=== PATIENT | female | born 1960 | race Caucasian/White ===

== ENCOUNTER 2018-03-04 18:17 | Emergency (ER) | payer OTHER ==
[2018-03-04] MEDS ORDERED: Ibuprofen TAB* 400 MG PO ONE (18:57)
[2018-03-04 19:01] VITALS: BP 80/47
--- NOTE | 2018-03-04 19:30 | UC ---
Upper Extremity HPI - HPI Summary HPI Summary: This patient is a 58 year old F with PMHx of Parkinsons presenting to [facility] with a chief complaint of L fifth digit injury since 16:45 today. She bent her finger backwards in a fall. The patient rates the pain 10/10 in severity. - History of Current Complaint Chief Complaint: UCUpperExtremity Stated Complaint: hand injury Time Seen by Provider: 03/04/18 18:41 Hx Obtained From: Patient Hx Last Menstrual Period: post menapausal Onset/Duration: Sudden Onset, Lasting Hours Severity Initially: Severe Severity Currently: Severe Pain Intensity: 10 Pain Scale Used: 0-10 Numeric Location Of Pain: Is Discrete @ - L 5th digit - Allergies/Home Medications Allergies/Adverse Reactions: Allergies Allergy/AdvReac Type Severity Reaction Status Date / Time MS Polyethylene Glycol Allergy Hives/Diff. Verified 11/14/16 14:13 [From GoLYTELY] Breathing/I tching MS Sodium Sulfate Allergy Hives/Diff. Verified 11/14/16 14:13 [From GoLYTELY] Breathing/I tching PMH/Surg Hx/FS Hx/Imm Hx Cardiovascular History: Other - Low blood pressure Other Cardiovascular History: Low blood pressure Neurological History: Other - Parkinson's Other Neurological History: Parkinson's - Surgical History Surgical History: Yes Surgery Procedure, Year, and Place: D+C, TUBAL, DEEP BRAIN STIMULATORS - Family History Known Family History: Positive: Cardiac Disease - [place], Diabetes, Other - CVA - Social History Occupation: Disabled Lives: With Family Alcohol Use: None Substance Use Type: None Smoking Status (MU): Never Smoked Tobacco Review of Systems Constitutional: Fever - Denies fever Musculoskeletal: Other: - Pain in L 5th digit All Other Systems Reviewed And Are Negative: Yes Physical Exam - Summary Physical Exam Summary: VITAL SIGNS: Reviewed. GENERAL: Patient is a well-developed and nourished FEMALE who is lying comfortable in the stretcher. Patient is not in any acute respiratory distress. HEAD AND FACE: Normocephalic EYES: PERRLA, EOMI x 2. EARS: Hearing grossly intact. MOUTH: Oropharynx within normal limits. NECK: Supple, trachea is midline, no adenopathy, no JVD, no carotid bruit. CHEST: Symmetric, no tenderness at palpation LUNGS: Clear to auscultation bilaterally. No wheezing or crackles. CVS: Regular rate and rhythm, S1 and S2 present, no murmurs or gallops appreciated. ABDOMEN: Soft, non-tender. Bowel sounds are normal. No abdominal abnormal pulsations. EXTREMITIES: Decreased ROM and tenderness of the L fifth digit. NEURO: Alert and oriented x 3. No acute neurological deficits. Speech is normal and follows commands. SKIN: Dry and warm Triage Information Reviewed: Yes Vital Signs: Initial Vital Signs Temp 98 F 03/04/18 18:51 Pulse 87 03/04/18 18:51 Resp 15 03/04/18 18:51 BP 80/47 03/04/18 18:51 Pulse Ox 93 03/04/18 18:51 Vital Signs Reviewed: Yes Procedures - Splinting 19:30 Location: Ulnar gutter spllint on L hand Splint: ulnar - Ulnar gutter Pre-Proc Neuro Vasc Exam: normal Post-Proc Neuro Vasc Exam: normal Diagnostics - Radiology Finger X-Ray Radiology Interpretation Completed By: ED Physician - 20:30. L distal fifth metacarpal fracture. Pending official report. Upper Extremity Course/Dx - Course Course Of Treatment: Patient is a 58-year-old female who presents to the urgent care with a chief complaint of having left fifth index pain. Patient has a distal metacarpal fracture. Patient was placed in a Ulnar Gutter Splint. Patient will be discharged home with follow-up with orthopedics. Patient is to take Tylenol or ibuprofen for pain. - Differential Dx/Diagnosis Provider Diagnoses: metacarpal fracture Discharge - Sign-Out/Discharge Documenting (check all that apply): Patient Departure - D/C All imaging exams completed and their final reports reviewed: Yes - Discharge Plan Condition: Stable Disposition: HOME Patient Education Materials: Hand Fracture (ED), Suspected Fracture (ED) Referrals: Vlad Lew MD [Medical Doctor] - Flavio Olivas MD [Primary Care Provider] - Additional Instructions: Take Acetaminophen or ibuprofen for pain or fever Increase your fluid intake Return to the or go to the emergency department if symptoms worsen Follow-up with primary care physician in next 2-3 days - Billing Disposition and Condition Condition: STABLE Disposition: Home - Attestation Statements Document Initiated by Scribe: Yes Documenting Scribe: Markus Gibbs Provider For Whom Scribe is Documenting (Include Credential): Flavio Chowdhury MD Scribe Attestation: I, Markus Gibbs, scribed for Flavio Chowdhury MD on 03/04/18 at 2037. Scribe Documentation Reviewed: Yes Provider Attestation: The documentation as recorded by the scribeMarkus accurately reflects the service I personally performed and the decisions made by me, Flavio Chowdhury MD
[2018-03-04] MEDS ORDERED: Ibuprofen TAB* 400 MG ONE (19:33)
--- NOTE | 2018-03-05 07:36 | RAD ---
INDICATION: Left fifth finger trauma. TECHNIQUE: 3 views of the left fifth finger were obtained. FINDINGS: There is soft tissue swelling present. There is an oblique slightly comminuted fracture of the distal diaphysis and metaphysis of the fifth metacarpal. There is separation of the fracture fragments. Joint spaces appear maintained. IMPRESSION: OBLIQUE, COMMINUTED, DISPLACED FRACTURE OF THE DISTAL FIFTH METACARPAL. R0
== END 2018-03-04 19:55 | disposition home or self-care (01) ==
LOC: UCEAST 18:17
DX: S62.337A Displaced fracture of neck of fifth metacarpal bone, left hand, initial encounter for closed fracture (principal); W19.XXXA Unspecified fall, initial encounter; Y93.9 Activity, unspecified; Y92.9 Unspecified place or not applicable; Z88.8 Allergy status to other drugs, medicaments and biological substances; G20 Parkinson's disease
CPT/HCPCS: 25600; 73140; 99211; A9270-GY; G0463

== ENCOUNTER 2018-04-24 11:36 | Day surgery (SDC) | payer OTHER ==
--- NOTE | 2018-04-16 14:45 | HP ---
PREOPERATIVE HISTORY AND PHYSICAL: DATE OF ADMISSION/SURGERY: 04/24/18 DATE OF OFFICE VISIT/ENCOUNTER: 04/15/18 ATTENDING SURGEON: Karen Rojas MD * (DICTATED BY ILSA DUDLEY) PROCEDURE: Left small finger hardware removal, explore extensor tendon. CHIEF COMPLAINT: Prominent hardware. HISTORY OF PRESENT ILLNESS: This is a 58-year-old female, who underwent an open reduction internal fixation of her left fifth metacarpal on 03/10/18. On postoperative appointment x-rays, the intramedullary screw appeared to be a bit prominent distally. The fracture has now healed sufficiently and the patient is proceeding with surgery to have the screw removed. PAST MEDICAL HISTORY: 1. Parkinson's disease. 2. History of uterine fibroid. 3. Pseudocholinesterase deficiency. PAST SURGICAL HISTORY: 1. Tubal ligation. 2. D and C. 3. Deep brain stimulator implantation and subsequent battery replacement. CURRENT MEDICATIONS: 1. Amantadine HCl 100 mg 2 tabs daily. 2. Azilect 1 mg daily. 3. Carbidopa/levodopa 25/100 one tab 3 times a day. 4. Pyridostigmine bromide 60 mg 1 tab twice a day. 5. Rytary 23.75/95 mg 3 tabs 3 times a day. 6. Medical marijuana as directed. ALLERGIES: COMTAN and MIRAPEX cause hallucinations and obsessive compulsion. FAMILY MEDICAL HISTORY: Diabetes, heart disease, hypertension, and stroke. SOCIAL HISTORY: The patient is disabled. She denies tobacco use and recreational drug use. She drinks alcohol on occasion. REVIEW OF SYSTEMS: Negative for general, cephalic, cardiovascular, respiratory. GI: Positive for occasional nausea and diarrhea. : Negative. Musculoskeletal: Positive for current complaint. Integumentary and endocrine are negative. Neurologic: Positive for signs and symptoms of Parkinson's. Endocrine and hematologic are negative. Infectious Disease: Negative for history of MRSA, hepatitis C, or HIV. PHYSICAL EXAMINATION GENERAL: Well-developed, well-nourished, 58-year-old female, in no acute distress. She has a significant parkinsonian tremor and impaired balance. She often ambulates with a cane. VITAL SIGNS: Height is 5 feet 7.5 inches, pulse rate 72, blood pressure 100/60 , weight 153 pounds. HEENT: Normocephalic, atraumatic. Pupils are equal, round, and reactive to light and accommodation. Extraocular movements are intact. Throat is clear. NECK: Supple. No palpable lymph nodes. PULMONARY: Lungs are clear to auscultation bilaterally. No wheezes, rales, or rhonchi. CARDIOVASCULAR: Regular rate and rhythm. S1 and S2. No murmurs, rubs, or gallops. No edema. ABDOMEN: Positive bowel sounds, soft, nontender. NEUROLOGIC: Alert and oriented x3. Cranial nerves II through XII are intact. MUSCULOSKELETAL: On exam of her left hand, she has a well-healed surgical incision at the distal fifth metacarpal. She has some tenderness to palpation at the incision. No tenderness at the fracture site. Fingers well aligned on inspection. She can make a fist with no deformities. She has a bit of an extensor lag of the pinky finger. Neurovascular function is intact. IMAGING STUDIES: X-rays, AP, lateral, of the left hand showed the fracture to be healing nicely with a bit of prominence of the intramedullary screw. IMPRESSION: Prominent hardware after open reduction internal fixation of the left fifth metacarpal. PLAN: The patient is scheduled to undergo a left small finger hardware removal , explore extensor tendon with Dr. Rojas on 04/24/18. She will return to the office 10 days after surgery for followup. She will plan on using over-the- counter medications for postoperative pain management. ILSA DUDLEY [id number]/[facility] #: [id number] FRANCIA
[2018-04-24] MEDS ORDERED: Midazolam* 1 MG/ML 2 ML VIAL (2 MG) ONE (12:50)
[2018-04-24] MEDS ORDERED: Lidocaine 1% INJ* 10 MG/ML 30 ML SDV ONE (12:51)
[2018-04-24 14:09] VITALS: BP 114/67
--- NOTE | 2018-04-25 03:07 | OP ---
DATE OF OPERATION: 04/24/18 [facility] DATE OF : 62 SURGEON: Karen Rojas MD [employer] COUNSELOR: ILSA Beyer ANESTHESIA: Local MAC. PRE-OP DIAGNOSIS: Prominent hardware in the left small finger status post open reduction internal fixation of the metacarpal. POST-OP DIAGNOSIS: Prominent hardware in the left small finger status post open reduction internal fixation of the metacarpal. OPERATIVE PROCEDURE: Left little finger extensor tendon exploration and screw removal. INDICATION FOR PROCEDURE: Farzaneh is a 58-year-old woman who had a metacarpal fracture of the left fifth finger. She has healed the fracture, but the screw has backed out some and is causing irritation of her extensor tendon. She presented for extensor tendon exploration and screw removal. ESTIMATED BLOOD LOSS: Zero. TOURNIQUET TIME: About 10 minutes. DESCRIPTION OF PROCEDURE: The patient was brought to the operating room, was given a sedation anesthetic and local infiltration of 10 cc of 1% plain lidocaine on the dorsal aspect of her left fifth metatarsophalangeal joint. The hand and forearm were exsanguinated and the tourniquet elevated to 250 mm after sterile prep. A longitudinal incision was made incorporating the previous scar and extended a little bit distally and proximally. The extensor tendon was explored and was in very good condition. The tendon was split longitudinally and then we were able to access the screw with the guidewire. The screw hazmat truck driver was placed over the guidewire and the screw was backed out easily. The extensor tendon adhesions underneath the tendon were released with a freer elevator. The wound was irrigated and the extensor tendon was repaired with 4-0 nylon suture in interrupted fashion. The skin edges were then reapproximated with 4-0 nylon suture. The wound was dressed with Xeroform, 4x4 , Webril, and an Pradeep wrap. The patient tolerated the procedure well and was brought to the recovery room in good condition. [id number]/[facility] #: [id number] [facility]ITAL[facility]
== END 2018-04-24 14:12 | disposition home or self-care (01) ==
LOC: OREAST 11:36
PROVIDERS: ATTEND Orthopaedic Surgery
DX: T84.220A Displacement of internal fixation device of bones of hand and fingers, initial encounter (principal); Y83.1 Surgical operation with implant of artificial internal device as the cause of abnormal reaction of the patient, or of later complication, without mention of misadventure at the time of the procedure; S62.327D Displaced fracture of shaft of fifth metacarpal bone, left hand, subsequent encounter for fracture with routine healing; X58.XXXD Exposure to other specified factors, subsequent encounter; Y92.9 Unspecified place or not applicable; G20 Parkinson's disease; E88.09 Other disorders of plasma-protein metabolism, not elsewhere classified
CPT/HCPCS: 88300; J2250